=== PATIENT | male | born 1980 | race Caucasian/White ===

== ENCOUNTER 2016-11-21 07:27 | Emergency (ER) | payer OTHER ==
--- NOTE | ~2016-11-21 | CT71 ---
[facility] A Service of [facility] RADIOLOGY TEXT RESULTS PATIENT: ROB CAMPBELL LOCATION: [facility] : [birth year] UNIT #: [id number] AGE: [address]: Danny Lei MD SEX: M ORDER DR: [id number] [facility] [address] [place], [place] [address] [id number] MR#: [id number] #: [id number] NAME: ROB CAMPBELL : 1980 SEX: M STUDY DATE/TIME: 11/21/2016 10:01 UNIT: [facility] ROOM: STUDY DESCRIPTION: CT Head Wo Contrast Attending Physician: Danny Lei M.D. Ordering Physician: Chari Clark P.A.-C. Primary Care Physician: Travis Aj M.D. MEDICAL IMAGING REPORT This report is preliminary unless electronic signature is present EXAM CT head without contrast Date: 11/21/2016 HISTORY Headache and body aches for 3-4 days. History of migraines. Frontal head pain, blurred vision and light sensitivity for [address] head without contrast 10/18/2011. This CT exam was performed with one or more of the following radiation dose reduction techniques: automatic exposure control, adjustment of mA and/or kV according to patient size, and iterative reconstruction. FINDINGS A 1 cm hyperdense focus is demonstrated within the left frontal lobe deep white matter measuring approximate 10 mm. It appears very slightly larger or more dense than on the 2011 examination. While this may simply be due to differences in slice selection, it may potentially represent interval enlargement. Parenchymal hemorrhage should be considered. No midline shift or significant edema is seen. Ventricular configuration is normal. Moderate bilateral patchy ethmoid sinus mucosal thickening and mild left frontal and right sphenoid sinus mucosal thickening is present. Mastoid air cells are clear. No acute calvarial abnormality is identified. IMPRESSION 1. There is approximately 10 mm focus of hyperdensity in the left frontal lobe deep white matter. It is worrisome for parenchymal [facility] Service of [facility] RADIOLOGY TEXT RESULTS PATIENT: ROB CAMPBELL LOCATION: [facility] : [birth year] UNIT #: [id number] AGE: [address]: Danny Lei MD SEX: M ORDER DR: hemorrhage. Curiously, it is located at a similar area to an 8 mm suspected area of parenchymal hemorrhage on the 2011 examination. However, on today's study, it appears slightly more dense and slightly larger. Certainly, underlying parenchymal lesion could also be considered. Consider followup MRI brain without with contrast. 2. No midline shift or hydrocephalus. 3. Paranasal sinus disease, greatest in the ethmoid sinuses. Dictated by... Velia Chua M.D. THIS IS AN ELECTRONICALLY VERIFIED REPORT Velia Chua M.D. at 11/21/2016 4:35 PM Murray TD: 11/21/2016 13:26 JOB #: [id number] MEDICAL IMAGING REPORT Page 1 of 1 COPY
[2016-11-21 08:42] LABS: BASOPHIL# 0.1 X10e3 (0-0.3); BASOPHIL% 1.4 % (0-2.5); DIFF IND NO; EOSINOPHIL# 0.3 X10e3 (0-0.7); EOSINOPHIL% 3.8 % (0.0-7.0); HEMATOCRIT 44.9 % (38.0-50.0); LYMPHOCYTE# 1.4 X10e3 (1.0-3.5); LYMPHOCYTE% 16.3 % (17.0-45.0); MEAN CELL VOLUME 89.9 FL (83-96); MEAN CORPUSCULAR HGB CONC 33.4 g/dL (30-36); MEAN PLATELET VOLUME 9.1 FL (6.5-11.5); MONOCYTE# 0.7 X10e3 (0-1.0); MONOCYTE% 8.3 % (3.0-12.0); NEUTROPHIL# 6.3 X10e3 (1.5-7.1); NEUTROPHIL% 70.2 % (40-75); PLATELET COUNT 169 X10e3 (140-420); RED BLOOD COUNT 4.99 X10e (3.90-5.60); RED CELL DISTRIBUTION WIDTH 13.2 % (11.0-15.5); WHITE BLOOD COUNT 8.9 X10e3 (4.0-10.5)
[2016-11-21 09:13] LABS: CALCIUM SERUM 8.7 mg/dL (8.4-10.2); CREATININE SERUM 0.9 mg/dL (0.6-1.4); GLOM FILT RATE Estimated 110.3 mL/min (>60); POTASSIUM 3.3 mmol/L (3.5-5.1)
[2016-11-21 11:14] LABS: INR 0.9; PARTIAL THROMBOPLASTIN TIME 25.7 SECONDS (23.5-31.3); PROTHROMBIN TIME (PATIENT) 9.7 SECONDS (9.6-11.5)
== END 2016-11-21 13:55 ==
LOC: CED 07:27
PROVIDERS: Emergency Medicine; Physician Assistant
DX: R51 Headache (principal); H53.8 Other visual disturbances; R11.2 Nausea with vomiting, unspecified; I25.2 Old myocardial infarction; F17.210 Nicotine dependence, cigarettes, uncomplicated; Z87.442 Personal history of urinary calculi
CPT/HCPCS: 70450; 80048; 85025; 85610; 85730; 96361; 96374; 96375; 99285; J1100; J1200; J1885; J2765